=== PATIENT | female | born 1945 | race Caucasian/White ===

== ENCOUNTER 2016-11-09 18:07 | Emergency (ER) | payer OTHER ==
[~2016-11-09 18:07] MED LIST: ALENDRONATE SOD70 MG PO; DOXYCYCLINE100 MG PO; IPRATROPIUM BROMIDE/ IN; LEVOFLOXACIN500 MG PO; LISINOPRIL10 MG PO; LORAZEPAM0.5 MG PO; METFORMIN HCL500 MG PO; PREDNISONE20 MG PO; PROAIR HFA IN; SINGULAIR10 MG PO; THEOPHYLLINE E200 MG PO
--- NOTE | 2016-11-09 21:03 | DIAGNOSTIC IMAGING REPORT ---
PROCEDURE: CT ABDOMEN/PELVIS W/O CONTRAST INDICATION: Left flank PAIN 4 weeks TECHNIQUE: Axial CT images were obtained through the abdomen and pelvis without IV contrast. Coronal and sagittal reformations were created. COMPARISON: CTA thorax 08/15/2015 FINDINGS: Small stable pericardial effusion. Moderate interstitial scarring at the lung bases. No hiatal hernia. 7 mm central hepatic cyst, bilateral simple renal and right hyperdense cyst. There is either focal left interpolar calyceal dilatation or moderate size left mid pole parapelvic cyst. No hydroureter or ureteral calcifications. Moderate aortic calcification. Normal unenhanced gallbladder, adrenal glands, pancreas, and spleen. The stomach, upper bowel loops, and mesentery are normal. Intact anterior abdominal wall. No free fluid or inflammation. Mildly increased retained stool in the proximal colon. There is moderate diverticular disease throughout the sigmoid colon. Small residual right ovarian cyst. The unenhanced appearance of the uterus, ovaries, urinary bladder, pelvic vessels, and pelvic bowel loops is normal. Surgically absent appendix. No suspicious calcifications, free pelvic fluid or mass. Bilateral L5 pars defects with grade 1 anterolisthesis. Otherwise normal osseous structures. IMPRESSION: 1. Bilateral renal cysts and probable left mid pole parapelvic cyst (less likely focal calyceal dilatation). No evidence of pararenal inflammation, ureteral calcifications, or convincing obstructive uropathy. 2. Moderate sigmoid diverticulosis. 3. Mild retained stool in the proximal colon. 4. Bilateral L4-5 pars defects with grade 1 anterolisthesis. 5. Discussed with Dr. Plunkett in the emergency room. All CT scans at this facility use dose modulation, iterative reconstruction, and/or weight-based dosing when appropriate to reduce radiation dose to as low as reasonably achievable.
--- NOTE | 2016-11-09 21:51 | ED ORDER SUMMARY ---
..... Patient: DONAVAN VERMA OrderSheet [facility] VisitID: [id number] [address] [place] [address] 71y, F Registration Date/Time: 11/09/2016 ORDER SHEET Weight: 64.8 kg (stated) Allergies: Codeine GENERAL ORDERS: UA-Culture if indicated Urgent (19:04 11/09/2016 Nick Ricardo) (Ack 19:08 LNations ER Tech1) (19:24 KPage-Kuchan R.N.) CT Abd/Pel wo Cont Urgent (19:55 11/09/2016 Nick Ricardo) (Ack 20:03 CHagerty ER Gis Scientist) (20:13 JQuivey R.N.) CBC w Diff Urgent (19:55 11/09/2016 Nick Ricardo) (Ack 20:03 CHagerty ER Gis Scientist) (20:13 JQuivey R.N.) CMP Urgent (19:55 11/09/2016 Nick Ricardo) (Ack 20:03 CHagerty ER Gis Scientist) (20:13 JQuivey R.N.) MEDICATION ORDERS: IV FLUIDS: IV Saline Lock (19:55 11/09/2016 Nick Ricardo) (Ack 19:57 JQuivey R.N.) (20:13 JQuivey R.N.) ORDER SHEET NOTES: [Electronically signed by Geovany Plunkett Dr. (21:53 11/09/2016)] [Electronically signed by Naveed Loza R.N. (22:00 11/09/2016)] [Electronically locked/signed by Naveed Loza R.N. (22:00 11/09/2016)]
--- NOTE | 2016-11-09 21:51 | ED ORDER SUMMARY ---
..... Patient: DONAVAN VERMA OrderSheet [facility] VisitID: [id number] [address] [place] [address] 71y, F Registration Date/Time: 11/09/2016 ORDER SHEET Weight: 64.8 kg (stated) Allergies: Codeine GENERAL ORDERS: UA-Culture if indicated Urgent (19:04 11/09/2016 Nick Ricardo) (Ack 19:08 LNations ER Tech1) (19:24 KPage-Kuchan R.N.) CT Abd/Pel wo Cont Urgent (19:55 11/09/2016 Nick Ricardo) (Ack 20:03 CHagerty ER Fur Repair Inspector) (20:13 JQuivey R.N.) CBC w Diff Urgent (19:55 11/09/2016 Nick Ricardo) (Ack 20:03 CHagerty ER Fur Repair Inspector) (20:13 JQuivey R.N.) CMP Urgent (19:55 11/09/2016 Nick Ricardo) (Ack 20:03 CHagerty ER Fur Repair Inspector) (20:13 JQuivey R.N.) MEDICATION ORDERS: IV FLUIDS: IV Saline Lock (19:55 11/09/2016 Nick Ricardo) (Ack 19:57 JQuivey R.N.) (20:13 JQuivey R.N.) ORDER SHEET NOTES: [Electronically signed by Geovany Plunkett Dr. (21:53 11/09/2016)] [Electronically signed by Naveed Loza R.N. (22:00 11/09/2016)] [Electronically locked/signed by Naveed Loza R.N. (22:00 11/09/2016)]
--- NOTE | 2016-11-09 21:51 | ED CLINICAL REPORT ---
Clinical Report - Physicians/Mid Levels [facility] [address] [place] [address] 11/09/2016 18:08 Patient: DONAVAN VERMA Time Seen: 18:17; initial patient contact. Arrived- By private vehicle. Historian- patient. HISTORY OF PRESENT ILLNESS Chief Complaint: FLANK PAIN. At its maximum, severity described as mild. When seen in the E.D., severity described as mild. Modifying factors. Not worsened by anything. Not relieved by anything. It is described as "pain" and it is described as located in the left flank and radiating to the groin. This started about 2 weeks ago. No nausea, loss of appetite, vomiting or diarrhea. Similar symptoms previously: None. Recent medical care: Not recently seen/assessed. REVIEW OF SYSTEMS The patient has had constipation. No difficulty with urination, pain with urination, urinary frequency, fever or chills. No hematuria. All systems otherwise negative, except as recorded above. PAST HISTORY Pneumonia. Sinusitis. LNMP - Last Normal Menstrual Period. Immunizations. Lung Cancer. Chronic bronchitis. UTI - Urinary Tract Infection. COPD - Chronic Obstructive Pulmonary Disease. ADDITIONAL SURGERIES: Appendectomy. Lobectomy of lung. Lung Surgery. Tubal Ligation. SOCIAL HISTORY Former smoker. No alcohol use or drug use. ADDITIONAL NOTES The nursing notes have been reviewed. PHYSICAL EXAM Vital Signs: 11/09/2016 18:17 BP: 168/57. HR: 94. RR: 21. O2 saturation: 96%. Temp: 98.7 F. Pain level now: 02/06. Have been reviewed. Hypertensive. Heart rate normal. Tachypneic. Temperature normal. Oxygen saturation normal. Appearance: Alert. Oriented X3. No acute distress. ENT: Pharynx normal. CVS: Normal heart rate and rhythm. Heart sounds normal. Respiratory: No respiratory distress. Breath sounds normal. Abdomen: Soft. Mild tenderness in the left side of the abdomen. No guarding or rebound tenderness. Bowel sounds normal. Back: Normal inspection. No CVA tenderness. Skin: Skin warm and dry. Normal skin color. Extremities: No lower extremity edema. Neuro: Oriented X 3. LABS, X-RAYS, AND EKG Abdominal CT: 1. Bilateral renal cysts and probable left mid pole parapelvic cyst (less likely focal calyceal dilatation). No evidence of pararenal inflammation, ureteral calcifications, or convincing obstructive uropathy. 2. Moderate sigmoid diverticulosis. 3. Mild retained stool in the proximal colon. 4. Bilateral L4-5 pars defects with grade 1 anterolisthesis. Study type: renal stone evaluation. Abdominal CT performed without contrast. The study was interpreted by the radiologist and discussed with the radiologist. Laboratory Tests: UA-Culture if indicated: (LUCIAN: 11/09/2016 18:26) ( [facility] 11/09/2016 19:21) Final results Test Result Flag Units (Reference) URINE COLOR STRAW URINE APPEARANCE CLEAR URINE GLUCOSE NEGATIVE (NEGATIVE) URINE BILIRUBIN NEGATIVE (NEGATIVE) URINE KETONE NEGATIVE (NEGATIVE) URINE SPECIFIC GRAVITY <= 1.005 L (1.010-1.030) URINE PH 6.0 (5.0-8.0) URINE PROTEIN NEGATIVE (NEGATIVE) URINE UROBILINOGEN 0.2 EU/dL (0.2-1.0) URINE NITRITE NEGATIVE (NEGATIVE) URINE BLOOD 1+ (NEGATIVE) URINE LEUK ESTERASE NEGATIVE (NEGATIVE) URINE RBC 0-1 rbc/hpf (0-1) URINE WBC RARE wbc/hpf (0-1) URINE EPITHELIAL CELLS RARE EPI/hpf (0-5) URINE BACTERIA NONE SEEN (NONE SEEN) URINE COMMENT CULT NOT INDICATED URINE CULTURES ARE SET-UP BASED ON THE FOLLOWING CRITERIA:POSITIVE NITRITEPOSITIVE LEUKOCYTE ESTERASEGREATER THAN 10 WHITE BLOOD CELLSMODERATE (2+) OR GREATER BACTERIA CBC w Diff: (LUCIAN: 11/09/2016 20:08) ( [facility] 11/09/2016 20:41) Final results Test Result Flag Units (Reference) WHITE BLOOD COUNT 15.6 H K/uL (4.5-11.5) RED BLOOD COUNT 4.30 M/uL (4.00-5.20) HEMOGLOBIN 12.8 gm/dL (12.0-16.0) HEMATOCRIT 38.3 % (36.0-46.0) MEAN CELL VOLUME 89 fL (80-100) MEAN CORPUSCULAR HGB 30 pg (26-34) MEAN CORPUSCULAR HGB CONC 34 g/dL (31-37) RED CELL DISTRIBUTION WIDTH 14.0 % (11.6-14.8) PLATELET COUNT 304 K/uL (150-400) NEUTROPHIL % 93.8 H % (50-75) LYMPH % 3.2 L % (25-40) MONO % 2.8 L % (3-14) EOSINOPHIL % 0 % (0-4) BASOPHIL % 0.2 % (0-2) CMP: (LUCIAN: 11/09/2016 20:08) ( MsgRcvd 11/09/2016 20:39) Final results Test Result Flag Units (Reference) GLUCOSE 118 H mg/dL (70-110) BUN 15 mg/dL (7-18) CREATININE 0.9 mg/dL (0.6-1.3) Estimated GFR >60 mL/min Estimated GFR- >60 mL/min Note: Persistent reduction over 3 months in eGFR<60 mL/min/1.73 m2 defines CKD. Patients with eGFR values>=60 mL/min/1.73 m2 may also have CKD if evidence ofpersistent proteinuria. Additional information may be foundat www.kidney.org. SODIUM 142 mmol/L (136-145) POTASSIUM 4.3 mmol/L (3.5-5.1) CHLORIDE 105 mmol/L (98-107) CARBON DIOXIDE 28 mmol/L (21-32) CALCIUM 9.1 mg/dL (8.5-10.1) TOTAL PROTEIN 7.4 g/dL (6.4-8.2) ALBUMIN 4.0 g/dL (3.3-5.0) BILIRUBIN, TOTAL 0.4 mg/dL (0.0-1.0) ALKALINE PHOSPHATASE 29 L U/L (46-116) AST (SGOT) 13 L U/L (15-37) ALT (SGPT) 20 U/L (12-78) . PROGRESS AND PROCEDURES Disposition: Discharged home in good and improved condition. Condition: good. CLINICAL IMPRESSION Constipation (Renal cyst). INSTRUCTIONS Drink plenty of fluids. Your Current Medications: CONTINUE TAKING THE FOLLOWING MEDICATIONS: Anoro Ellipta Inhalation. Benadryl Oral : 2x a day. Lisinopril Oral : 10 mg daily. LORazepam Oral : 0.5 mg 2x a day. Montelukast Sodium Oral : 10 mg daily. PredniSONE Oral : 10 mg daily. Vitamin D Oral : Capsule 2000 unit. Prescription Medications: Miralax: take 1 package mixed in 8 ounces water or juice every day as needed for constipation. Dispense one (1) twelve pack. No refills. Substitution is permissible. Follow-up: Follow up with your doctor in about two days. Call for an appointment. (Electronically signed by Geovany Plunkett Dr. 11/09/2016 21:53)
--- NOTE | 2016-11-09 21:51 | ED CLINICAL REPORT ---
Clinical Report - Physicians/Mid Levels [facility] [address] [place] [address] 11/09/2016 18:08 Patient: DONAVAN VERMA Time Seen: 18:17; initial patient contact. Arrived- By private vehicle. Historian- patient. HISTORY OF PRESENT ILLNESS Chief Complaint: FLANK PAIN. At its maximum, severity described as mild. When seen in the E.D., severity described as mild. Modifying factors. Not worsened by anything. Not relieved by anything. It is described as "pain" and it is described as located in the left flank and radiating to the groin. This started about 2 weeks ago. No nausea, loss of appetite, vomiting or diarrhea. Similar symptoms previously: None. Recent medical care: Not recently seen/assessed. REVIEW OF SYSTEMS The patient has had constipation. No difficulty with urination, pain with urination, urinary frequency, fever or chills. No hematuria. All systems otherwise negative, except as recorded above. PAST HISTORY Pneumonia. Sinusitis. LNMP - Last Normal Menstrual Period. Immunizations. Lung Cancer. Chronic bronchitis. UTI - Urinary Tract Infection. COPD - Chronic Obstructive Pulmonary Disease. ADDITIONAL SURGERIES: Appendectomy. Lobectomy of lung. Lung Surgery. Tubal Ligation. SOCIAL HISTORY Former smoker. No alcohol use or drug use. ADDITIONAL NOTES The nursing notes have been reviewed. PHYSICAL EXAM Vital Signs: 11/09/2016 18:17 BP: 168/57. HR: 94. RR: 21. O2 saturation: 96%. Temp: 98.7 F. Pain level now: 02/06. Have been reviewed. Hypertensive. Heart rate normal. Tachypneic. Temperature normal. Oxygen saturation normal. Appearance: Alert. Oriented X3. No acute distress. ENT: Pharynx normal. CVS: Normal heart rate and rhythm. Heart sounds normal. Respiratory: No respiratory distress. Breath sounds normal. Abdomen: Soft. Mild tenderness in the left side of the abdomen. No guarding or rebound tenderness. Bowel sounds normal. Back: Normal inspection. No CVA tenderness. Skin: Skin warm and dry. Normal skin color. Extremities: No lower extremity edema. Neuro: Oriented X 3. LABS, X-RAYS, AND EKG Abdominal CT: 1. Bilateral renal cysts and probable left mid pole parapelvic cyst (less likely focal calyceal dilatation). No evidence of pararenal inflammation, ureteral calcifications, or convincing obstructive uropathy. 2. Moderate sigmoid diverticulosis. 3. Mild retained stool in the proximal colon. 4. Bilateral L4-5 pars defects with grade 1 anterolisthesis. Study type: renal stone evaluation. Abdominal CT performed without contrast. The study was interpreted by the radiologist and discussed with the radiologist. Laboratory Tests: UA-Culture if indicated: (LUCIAN: 11/09/2016 18:26) ( [facility] 11/09/2016 19:21) Final results Test Result Flag Units (Reference) URINE COLOR STRAW URINE APPEARANCE CLEAR URINE GLUCOSE NEGATIVE (NEGATIVE) URINE BILIRUBIN NEGATIVE (NEGATIVE) URINE KETONE NEGATIVE (NEGATIVE) URINE SPECIFIC GRAVITY <= 1.005 L (1.010-1.030) URINE PH 6.0 (5.0-8.0) URINE PROTEIN NEGATIVE (NEGATIVE) URINE UROBILINOGEN 0.2 EU/dL (0.2-1.0) URINE NITRITE NEGATIVE (NEGATIVE) URINE BLOOD 1+ (NEGATIVE) URINE LEUK ESTERASE NEGATIVE (NEGATIVE) URINE RBC 0-1 rbc/hpf (0-1) URINE WBC RARE wbc/hpf (0-1) URINE EPITHELIAL CELLS RARE EPI/hpf (0-5) URINE BACTERIA NONE SEEN (NONE SEEN) URINE COMMENT CULT NOT INDICATED URINE CULTURES ARE SET-UP BASED ON THE FOLLOWING CRITERIA:POSITIVE NITRITEPOSITIVE LEUKOCYTE ESTERASEGREATER THAN 10 WHITE BLOOD CELLSMODERATE (2+) OR GREATER BACTERIA CBC w Diff: (LUCIAN: 11/09/2016 20:08) ( [facility] 11/09/2016 20:41) Final results Test Result Flag Units (Reference) WHITE BLOOD COUNT 15.6 H K/uL (4.5-11.5) RED BLOOD COUNT 4.30 M/uL (4.00-5.20) HEMOGLOBIN 12.8 gm/dL (12.0-16.0) HEMATOCRIT 38.3 % (36.0-46.0) MEAN CELL VOLUME 89 fL (80-100) MEAN CORPUSCULAR HGB 30 pg (26-34) MEAN CORPUSCULAR HGB CONC 34 g/dL (31-37) RED CELL DISTRIBUTION WIDTH 14.0 % (11.6-14.8) PLATELET COUNT 304 K/uL (150-400) NEUTROPHIL % 93.8 H % (50-75) LYMPH % 3.2 L % (25-40) MONO % 2.8 L % (3-14) EOSINOPHIL % 0 % (0-4) BASOPHIL % 0.2 % (0-2) CMP: (LUCIAN: 11/09/2016 20:08) ( MsgRcvd 11/09/2016 20:39) Final results Test Result Flag Units (Reference) GLUCOSE 118 H mg/dL (70-110) BUN 15 mg/dL (7-18) CREATININE 0.9 mg/dL (0.6-1.3) Estimated GFR >60 mL/min Estimated GFR- >60 mL/min Note: Persistent reduction over 3 months in eGFR<60 mL/min/1.73 m2 defines CKD. Patients with eGFR values>=60 mL/min/1.73 m2 may also have CKD if evidence ofpersistent proteinuria. Additional information may be foundat www.kidney.org. SODIUM 142 mmol/L (136-145) POTASSIUM 4.3 mmol/L (3.5-5.1) CHLORIDE 105 mmol/L (98-107) CARBON DIOXIDE 28 mmol/L (21-32) CALCIUM 9.1 mg/dL (8.5-10.1) TOTAL PROTEIN 7.4 g/dL (6.4-8.2) ALBUMIN 4.0 g/dL (3.3-5.0) BILIRUBIN, TOTAL 0.4 mg/dL (0.0-1.0) ALKALINE PHOSPHATASE 29 L U/L (46-116) AST (SGOT) 13 L U/L (15-37) ALT (SGPT) 20 U/L (12-78) . PROGRESS AND PROCEDURES Disposition: Discharged home in good and improved condition. Condition: good. CLINICAL IMPRESSION Constipation (Renal cyst). INSTRUCTIONS Drink plenty of fluids. Your Current Medications: CONTINUE TAKING THE FOLLOWING MEDICATIONS: Anoro Ellipta Inhalation. Benadryl Oral : 2x a day. Lisinopril Oral : 10 mg daily. LORazepam Oral : 0.5 mg 2x a day. Montelukast Sodium Oral : 10 mg daily. PredniSONE Oral : 10 mg daily. Vitamin D Oral : Capsule 2000 unit. Prescription Medications: Miralax: take 1 package mixed in 8 ounces water or juice every day as needed for constipation. Dispense one (1) twelve pack. No refills. Substitution is permissible. Follow-up: Follow up with your doctor in about two days. Call for an appointment. (Electronically signed by Geovany Plunkett Dr. 11/09/2016 21:53)
--- NOTE | 2016-11-09 21:51 | ED NURSING NOTES ---
Clinical Report - Nurses [facility] [address] [place] [address] 11/09/2016 18:08 Patient: DONAVAN VERMA TRIAGE Triage time 18:14Oct 13 2016. Acuity: LEVEL 3. Chief Complaint: (pt c/o left sided flank pain x 2 weeks, saw dr phillips last week with no diagnosis, pt denies dysuria, pain increases while sedentery, pt normal bm). Alert. No acute distress. SEPSIS SCREEN: Sepsis Screen. Negative (no infection suspected/documented). --18:30 Jackson Thibodeaux R.N. 18:17 11/09/16. BP: 168/57. HR: 94. RR: 21. O2 saturation: 96% on nasal cannula at 2 liters/minute. Temp: 98.7 F. Pain level now: 9/10. Additional comments: pt uses home O2. --18:30 Jackson Thibodeaxu R.N. Weight: 64.8 kg stated. Height/Length: 63 inches Per Patient. BMI: 25.3. --18:22 Jackson Thibodeaux R.N. Medications Anoro Ellipta Inhalation. Lisinopril Oral 10 mg, daily. --18:18 Jackson Thibodeaux R.N. Montelukast Sodium Oral 10 mg, daily. --18:18 Jackson Thibodeaux R.N. LORazepam Oral 0.5 mg, 2x a day. --18:19 Jackson Thibodeaux R.N. PredniSONE Oral 10 mg, daily. --18:19 Jackson Thibodeaux R.N. Vitamin D Oral (Capsule 2000 unit). --18:19 Jackson Thibodeaux R.N. Benadryl Oral, 2x a day. --18:19 Jackson Thibodeaux R.N. Medication/allergy information source: the patient. --18:30 Jackson Thibodeaux R.N. Allergies Codeine.(itching) --18:18 Jackson Thibodeaux R.N. History Arrived by private vehicle. Historian: patient. Accompanied by family. Onset. (2 weeks ago). Last oral intake by patient was lunch. Treatment DEVELOPMENT REPRESENTATIVE: None. PAST MEDICAL HX: Immunizations: up-to-date. The patient is post-menopausal. SOCIAL HX: Former smoker, end date 1999 (pt chews beachnut tobacco). No alcohol use or drug use. No infectious disease exposure. No known contact with a sick individual. ABUSE ASSESSMENT: No report of abuse. SELF HARM ASSESSMENT: A self harm assessment was performed. The patient answered "no" to the question "Do you have thoughts of harming or killing yourself?". FALL RISK ASSESSMENT: Fall risk assessment completed. No fall risk identified. NUTRITIONAL RISK ASSESSMENT: The nutritional risk assessment revealed no deficiencies. FUNCTIONAL ASSESSMENT: Functional assessment: no impairments noted. LEARNING NEEDS ASSESSMENT: The learning needs assessment revealed no barriers. SKIN INTEGRITY ASSESSMENT: Skin integrity risk assessment completed. No skin integrity risk identified. --18:30 Jackson Thibodeaux R.N. PROBLEMS: Pneumonia. Sinusitis. LNMP - Last Normal Menstrual Period. Immunizations. Lung Cancer. Chronic bronchitis. UTI - Urinary Tract Infection. COPD - Chronic Obstructive Pulmonary Disease. --18:20 Jackson Thibodeaux R.N. ADDITIONAL SURGERIES: Appendectomy. Lobectomy of lung. Lung Surgery. Tubal Ligation. --18:20 Jackson Thibodeaux R.N. Interventions ID band on patient. --18:30 Jackson Thibodeaux R.N. PHYSICAL ASSESSMENT Ambulatory to room. Patient gowned. GENERAL / NEURO / PSYCH: Alert. Oriented X 4. Appears in no acute distress. HEENT: Mucous membranes are pink. RESPIRATORY: Mild respiratory distress (normal for pt- hx of copd, lung ca and resection of right lung). CVS: Capillary refill less than 2 seconds. GI / : Abdomen soft and nontender. Bowel sounds within normal limits. Stool color normal. SKIN: Skin is warm and dry. --18:31 Jackson Thibodeaux R.N. NURSING PROGRESS NOTES Checked patient name and birthdate: patient confirmed. Instructions provided to collect clean catch urine and patient verbalized understanding. Clean catch urine collected with return of yellow-colored urine. Specimen labeled in the presence of the patient. Patient identifiers checked. Call light placed in reach. Side rails up x 1. Bed placed in lowest position. Brakes of bed on. Patient ready for evaluation- chart flagged. Patient waiting for evaluation. --18:32 Jackson Thibodeaux R.N. 19:54 Assisted pt to restroom. --19:55 Naveed Loza R.N. 19:56 Patient back in bed monitoring in place. --20:00 Naveed Loza R.N. 20:00. Patient transported to [place] by stretcher with tech. --20:00 Naveed Loza R.N. 20:05. Patient returned from CT by stretcher with tech. --20:05 Naveed Loza R.N. 20:09 11/09/2016 Site #1 started via IV in the right hand with an 20g angiocath, with aseptic technique and good blood return; one attempt. Blood drawn: rainbow set. Labeled in the presence of the patient and sent to the lab. Saline lock flushed with 10 mL saline. --20:13 Naveed Loza R.N. 21:54. The patient is calm and resting quietly. Overall patient status is improved- she states feels better. SKIN: Skin is warm and dry. Skin color within normal limits. --22:00 Naveed Loza R.N. DISPOSITION / DISCHARGE 21:51 11/09/2016 Site #1 removed upon discharge. Catheter intact. Bandage applied. --22:00 Naveed Loza R.N. Departure time: 21:56. Condition at departure: improved and stable. No learning barriers present. Discharge instructions provided and reviewed with the patient and family. Reviewed medication(s) side effects, precautions, dosing and course information. Prescription(s) given to the patient. Patient and family verbalized understanding. Written instructions provided in Amharic. The patient was discharged home and accompanied by family. She left the Emergency Department ambulatory and via private vehicle. Family member driving. FALL RISK ASSESSMENT: Fall risk assessment completed. No fall risk identified. --22:00 Naveed Loza R.N. 21:52 11/09/16. BP: 135/68. HR: 70. RR: 18. O2 saturation: 99% on nasal cannula at 2 liters/minute. Pain level now: 08/06. --22:00 Naveed Loza R.N. Locked/Released at 11/09/2016 22:00 by Naveed Loza R.N.
--- NOTE | 2016-11-09 22:01 | ED DISCHARGE INSTRUCTIONS ---
Patient: DONAVAN VERMA General Instructions [facility] VisitID: [id number] [place] [address] 71y, F Registration Date/Time: 11/09/2016 Constipation (Renal cyst). INSTRUCTIONS Drink plenty of fluids. Your Current Medications: CONTINUE TAKING THE FOLLOWING MEDICATIONS: Anoro Ellipta Inhalation. Benadryl Oral : 2x a day. Lisinopril Oral : 10 mg daily. LORazepam Oral : 0.5 mg 2x a day. Montelukast Sodium Oral : 10 mg daily. PredniSONE Oral : 10 mg daily. Vitamin D Oral : Capsule 2000 unit. Prescription Medications: Miralax: take 1 package mixed in 8 ounces water or juice every day as needed for constipation. Dispense one (1) twelve pack. No refills. Substitution is permissible. Follow-up: Follow up with your doctor in about two days. Call for an appointment. ADDITIONAL INFORMATION Constipation (Adult) Constipation is bowel movements that are less frequent than usual. Stools often become very hard and difficult to pass. This may lead to abdominal pain and bloating. It may also cause painful bowel movements. Constipation may be due to a diet thats low in fiber. Some medications, especially pain medications, can also cause it. Constipation may be treated with enemas, suppositories, laxatives or stool softeners. Your doctor will advise you which will work best for you. Follow the advice below to help avoid this problem in the future. Home Care Medication: Take any medicines as directed. Some laxatives are safe only for occasional use. Others can be taken on a regular basis. Talk to your doctor or pharmacist if you have questions. General Care: Prescription pain medications can cause constipation. If you are prescribed pain medications, ask the doctor whether you should also take a stool softener. A diet high in fiber with plenty of fluids helps to maintain regular, soft bowel movements. The following foods are good sources of dietary fiber: Cereals and breads: Whole grain cereal with bran, oatmeal, rolled oats, whole grain breads Fruits: All fruits (fresh and dried), raisins, prunes, apricots, berries, figs Vegetables: Any fresh vegetables, especially peas, broccoli, brussels sprouts, winter squash, green beans, cauliflower, fletcher beans, carrots Other: Popcorn, brown rice Drink plenty of water when you increase the amount of fiber you eat. Follow Up with your doctor or return to this facility if symptoms do not improve in the next few days. You may require further tests or a referral to a specialist. Get Prompt Medical Attention if any of the following occur: Fever over 100.4F (38C) Failure to resume normal bowel movements Increasing abdominal or back pain Nausea or vomiting Abdominal swelling Blood in the stool Weakness, dizziness or fainting Unexpected vaginal bleeding You have been given the following additional information: Constipation (Adult) (Electronically signed by Geovany Plunkett Dr. 11/09/2016 21:53)
--- NOTE | 2016-11-09 22:02 | ED MED RECONCILIATION SUMMARY ---
Patient: DONAVAN VERMA Medication Reconciliation Report [facility] VisitID: [id number] [address] [place] [address] 71y, F Registration Date/Time: 11/09/2016 Weight: 64.8 kg Height/Length: 63 in. BMI: 25.3 ALLERGIES: Codeine The patient's Home Medications are listed below: CONTINUE TAKING THE FOLLOWING MEDICATIONS: Anoro Ellipta Inhalation Benadryl Oral, 2x a day Lisinopril Oral 10 mg, daily LORazepam Oral 0.5 mg, 2x a day Montelukast Sodium Oral 10 mg, daily PredniSONE Oral 10 mg, daily Vitamin D Oral (2000 unit) The source(s) of the original Home Medication information: patient The following Medications were given to the patient in the Emergency Department: None. The following Medications were prescribed to the patient: Miralax: take 1 package mixed in 8 ounces water or juice every day as needed for constipation. Dispense one (1) twelve pack. No refills. Substitution is permissible. -- Geovany Plunkett Dr.
--- NOTE | 2016-11-09 22:02 | ED MED RECONCILIATION SUMMARY ---
Patient: DONAVAN VERMA Medication Reconciliation Report [facility] VisitID: [id number] [address] [place] [address] 71y, F Registration Date/Time: 11/09/2016 Weight: 64.8 kg Height/Length: 63 in. BMI: 25.3 ALLERGIES: Codeine The patient's Home Medications are listed below: CONTINUE TAKING THE FOLLOWING MEDICATIONS: Anoro Ellipta Inhalation Benadryl Oral, 2x a day Lisinopril Oral 10 mg, daily LORazepam Oral 0.5 mg, 2x a day Montelukast Sodium Oral 10 mg, daily PredniSONE Oral 10 mg, daily Vitamin D Oral (2000 unit) The source(s) of the original Home Medication information: patient The following Medications were given to the patient in the Emergency Department: None. The following Medications were prescribed to the patient: Miralax: take 1 package mixed in 8 ounces water or juice every day as needed for constipation. Dispense one (1) twelve pack. No refills. Substitution is permissible. -- Geovany Plunkett Dr.
--- NOTE | 2016-11-09 22:02 | ED MAR SUMMARY ---
..... Medication Administration Record [facility] [address] [place], [place] [id number] Patient: DONAVAN VERMA Visit ID: [id number] 71y, F Weight: 64.8 kg Height/Length: 63 in BMI: 25.3 ALLERGIES: Codeine
--- NOTE | 2016-11-09 22:02 | ED MAR SUMMARY ---
..... Medication Administration Record [facility] [address] [place] [id number] Patient: DONAVAN VERMA Visit ID: [id number] 71y, F Weight: 64.8 kg Height/Length: 63 in BMI: 25.3 ALLERGIES: Codeine
== END 2016-11-09 21:56 | disposition home or self-care (01) ==
LOC: ED SRH 18:07
DX: K59.00 Constipation, unspecified (principal); N28.1 Cyst of kidney, acquired; Z79.899 Other long term (current) drug therapy; Z87.891 Personal history of nicotine dependence; Z88.5 Allergy status to narcotic agent
CPT/HCPCS: 90004; 90100; 95059